=== PATIENT | female | born 1935 | race Caucasian/White ===

== ENCOUNTER 2022-12-03 14:29 | Inpatient (IN) | payer MEDICARE ==
[2022-12-03] VITALS (301 sets, daily range): BP systolic 132; BP diastolic 84; PULSE 96; TEMP 98.3; O2SAT 80–100
[~2022-12-03] VITALS: Ht 160 cm; Wt 75.6 kg
[~2022-12-03 14:29] MED LIST: ASPI325T6 PO; LORTAB 5/500 501 TAB PO; NIACIN500 M3 PO; NORVASC 5MG5 MG/TAB PO; OMEGA-3 1000 MG1 CAP PO; ONE DAILY ESSE0.5 M1 PO; PRINZIDE 12.5 M1 TA1 PO; TOPROL XL 25MG25 MG PO
[2022-12-03 15:18] LABS: BASO # 0.1 K/mm3 (0.0-0.2); BASO % 0.5 % (0.0-2.0); GRAN # 9.2 K/mm3 (1.4-6.5); GRAN % 83.2 % (42.2-75.2); HEMOGLOBIN 10.6 g/dl (12.5-16.0); LYMPH # 0.5 K/mm3 (1.2-3.4); LYMPH % 4.2 % (20.0-51.0); MEAN CELL VOLUME 89 fl (80.0-100.0); MEAN CORPUSCULAR HEMOGLOBIN 28 pg (27-31); MEAN CORPUSCULAR HGB CONC 32 g/dl (33.0-37.0); MEAN PLATELET VOLUME 10.9 fl (7.4-10.4); MONO # 1.3 K/mm3 (0.1-0.6); MONO % 11.5 % (1.7-9.3); PLATELET COUNT 274 K/mm3 (130-400); RED BLOOD COUNT 3.77 M/mm3 (4.10-5.30)
[2022-12-03 15:20] LABS: HEMATOCRIT 33.7 % (37.0-47.0)
[2022-12-03 15:30] LABS: ALBUMIN 3.2 gm/dL (3.4-4.8); BILIRUBIN,TOTAL 0.4 mg/dL (0.2-1.2); CREATININE, serum 1.22 mg/dL (0.57-1.11); POTASSIUM 4.2 mmol/L (3.5-4.5); TOTAL PROTEIN 7.2 gm/dL (6.2-8.1)
[2022-12-03 15:37] LABS: TROPONIN-I 0.063 ng/mL (0.00-0.033)
[2022-12-03 18:37] LABS: BILIRUBIN,DIRECT 0.2 mg/dL (0.0-0.5)
[2022-12-03 18:47] LABS: INR 1.6 (0.8-3.0); PARTIAL THROMBOPLASTIN TIME 34.8 SECONDS (26.0-37.0); PROTHROMBIN TIME 18.1 SECONDS (9.7-12.8)
[2022-12-03 18:50] LABS: C-REACTIVE PROTEIN 2.63 mg/dL (0.00-0.50)
[2022-12-03] MEDS ORDERED: HCTZ12.5TAB PO (19:13)
[2022-12-03] MEDS ORDERED: PRINIVIL10 MG PO (19:14)
[2022-12-03] MEDS ORDERED: ZYLOPRIM 100MG100 MG PO (19:14)
[2022-12-03] MEDS ORDERED: ASPIRIN 81M81 MG/TA2 PO (19:15)
[2022-12-03] MEDS ORDERED: NATURAL ODORLE400 MG PO (19:15)
[2022-12-03] MEDS ORDERED: ELIQUIS 2.5 PO (19:16)
--- NOTE | 2022-12-03 19:30 | NUR ---
Patient's daughter arrived onto the unit. Daughter educated per hospital protocol, she needs to be in PPE due to patient being COVID and Flu positive. Daughter educated on the visitor policy. 1945- Pt assessment completed at this time. Pt placed on bedpan after she mentioned using the restroom. Pt states she is aware of when she needs to go to the restroom although daughter mentioned that the pt is incontinent at home. Pts vital signs are stable, pt rated pain 0/10, and pt is alert and oriented. Pt is able to follow commands and answer questions appropriately. RN assisted pt in repositioning in bed, call light is in reach.
--- NOTE | 2022-12-03 21:56 | NUR ---
Pt's Remdesivir not given at scheduled time due to unavailability at this time. Will be administerd 12/04/22 when pharmacy is available.
[2022-12-04] VITALS (951 sets, daily range): BP systolic 102–121; BP diastolic 66–83; PULSE 73–96; TEMP 98–99.8; O2SAT 43–100
--- NOTE | 2022-12-04 01:44 | NUR ---
PER HEPARIN DRIP PROTOCOL, HEPARIN IS PLACED ON HOLD FOR 2 HOURS.
[2022-12-04 03:57] LABS: PARTIAL THROMBOPLASTIN TIME 63.2 SECONDS (26.0-37.0)
--- NOTE | 2022-12-04 05:17 | NUR ---
Pt voided only 150cc of urine, plus a very small amount of urine unmeasured on the chux. RN bladder scanned pt to determine if pt is retaining urine. Pt bladder scanner read a max of 128cc.
[2022-12-04 06:02] LABS: BASO % 0.4 % (0.0-2.0); GRAN # 6.6 K/mm3 (1.4-6.5); GRAN % 69.6 % (42.2-75.2); HEMOGLOBIN 10.3 g/dl (12.5-16.0); LYMPH # 1.4 K/mm3 (1.2-3.4); LYMPH % 14.5 % (20.0-51.0); MEAN CELL VOLUME 90 fl (80.0-100.0); MEAN CORPUSCULAR HEMOGLOBIN 29 pg (27-31); MEAN CORPUSCULAR HGB CONC 32 g/dl (33.0-37.0); MEAN PLATELET VOLUME 10.3 fl (7.4-10.4); MONO # 1.4 K/mm3 (0.1-0.6); MONO % 15.1 % (1.7-9.3); PLATELET COUNT 242 K/mm3 (130-400); RED BLOOD COUNT 3.57 M/mm3 (4.10-5.30); REDCELL DISTRIBUTION WIDTH-CV 16.1 % (11.5-14.5)
[2022-12-04 06:13] LABS: PARTIAL THROMBOPLASTIN TIME 38.2 SECONDS (26.0-37.0)
[2022-12-04 06:24] LABS: ALBUMIN 2.9 gm/dL (3.4-4.8); BILIRUBIN,TOTAL 0.5 mg/dL (0.2-1.2); CALCIUM 9.4 mg/dL (8.4-10.2); CREATININE, serum 1.06 mg/dL (0.57-1.11); MAGNESIUM 1.7 mg/dL (1.6-2.6); TOTAL PROTEIN 6.5 gm/dL (6.2-8.1)
--- NOTE | 2022-12-04 09:34 | NUR ---
BEDSIDE REPORT RECEIVED FROM SMOOTH FARMER. PT RESTING IN BED, VSS, O2 SAT 93-95% ON ROOM AIR. AMIO DRIP INFUSING TO [facility] TRIPLE LUMEN ORDERED. PT IS ALERT AND ORIENTED, CALL LIGHT IN REACH.
--- NOTE | 2022-12-04 13:48 | NUR ---
Attempt made to contact both the patient and patients daughter Shira to complete intake. Unsuccessful, message left.
--- NOTE | 2022-12-04 15:05 | NUR ---
PAWEL contacted the patients daughter Shira ([phone]) to complete intake. Per Shira,the patient has been living with her since the 07 of October. Shira states that she has to assist the patient with her ADL's but the patient has been able to ambulate short distances with the aid of a walker. She has no home oxygen needs. Patient has recently established care with for PCP care and gets her medications through [facility]. Shira reports that she has asked her brother to look for the patients DPOA-HC paperwork at her home in [place]. She believes that it is set up where she is the patients medical decision maker and her brother is her financial decision maker. Shira verbalizes that she has been speaking with Ankush at [facility] to get the patient into assisted living and would like a referral sent there for skilled care. Her second preference would be [facility]. Phone call made to Ankush at [facility] to inform her of the referral and she confirms that she has been working with the family but would not be able to bring the patient into their facility until 10 day post positive covid swab. Phone call made to Kwabena at [facility] and referral sent to him for review.
--- NOTE | 2022-12-04 20:00 | NUR ---
Pt assessment completed. EMAR states pt is ordered to receive Eliquis and Amiodorone PO at 2100, per day shift RN, pharmacy was consulted about time of administration. Pharmacy told day shift RN to administer medications at 0000 on 12/04/22 to put pt on a correct scheudle for the following day.
[2022-12-04] MEDS ORDERED: VITAMIN C500 MG PO (23:37)
[2022-12-05 05:02] VITALS: BP 112/73; PULSE 99; TEMP 98
[2022-12-05 05:30] LABS: BASO % 0.4 % (0.0-2.0); GRAN # 6.2 K/mm3 (1.4-6.5); GRAN % 74.2 % (42.2-75.2); LYMPH % 12.3 % (20.0-51.0); MEAN CELL VOLUME 90 fl (80.0-100.0); MEAN CORPUSCULAR HGB CONC 33 g/dl (33.0-37.0); MEAN PLATELET VOLUME 10.8 fl (7.4-10.4); MONO # 1.1 K/mm3 (0.1-0.6); MONO % 12.7 % (1.7-9.3); PLATELET COUNT 231 K/mm3 (130-400); RED BLOOD COUNT 3.33 M/mm3 (4.10-5.30); REDCELL DISTRIBUTION WIDTH-CV 16.1 % (11.5-14.5)
[2022-12-05 05:31] LABS: HEMATOCRIT 30.1 % (37.0-47.0); HEMOGLOBIN 9.8 g/dl (12.5-16.0); MEAN CORPUSCULAR HEMOGLOBIN 29 pg (27-31)
[2022-12-05 05:33] LABS: ALBUMIN 2.6 gm/dL (3.4-4.8); BILIRUBIN,TOTAL 0.4 mg/dL (0.2-1.2); CALCIUM 8.7 mg/dL (8.4-10.2); CREATININE, serum 0.92 mg/dL (0.57-1.11); MAGNESIUM 1.8 mg/dL (1.6-2.6); POTASSIUM 3.5 mmol/L (3.5-4.5); TOTAL PROTEIN 5.9 gm/dL (6.2-8.1)
--- NOTE | 2022-12-05 07:00 | NUR ---
PT RESTING IN BED. PT IS ON RA. PT IN ISOLATION FOR COVID. PT HAS BEDALARM ACITVE. PT HAS PUREWICK IN PLACE. PT INSTRUCTED TO CALL WITH ALL NEEDS AND HAS CALL LIGHT WITHIN REACH. 08Irlanda-LETA MATIAS WITH ASKED REGARDING POSSIBLE MASOUD/CARDIOVERSION TODAY.
[2022-12-05 07:43] VITALS: BP 94/56; PULSE 82; TEMP 97.9
--- NOTE | 2022-12-05 08:37 | NUR ---
MISA NATION NOTIFIED OF PTS ORDERS BEING DCD WHEN TX OUT OF ICU. STATES SHE WILL NOTIFIY DR RIVERA
[2022-12-05 09:58] LABS: CALCIUM 8.6 mg/dL (8.4-10.2); CREATININE, serum 0.86 mg/dL (0.57-1.11); POTASSIUM 3.3 mmol/L (3.5-4.5)
--- NOTE | 2022-12-05 11:37 | NUR ---
Scissors Sharpener faxed clinical updates to [facility].
[2022-12-05 11:54] VITALS: BP 110/40; PULSE 75; TEMP 97.7
[2022-12-05 15:21] VITALS: BP 97/58; PULSE 72; TEMP 97.7
[2022-12-05 20:52] VITALS: BP 124/80; PULSE 72; TEMP 97.7
[2022-12-06] VITALS (7 sets, daily range): BP systolic 108–147; BP diastolic 53–93; PULSE 46–88; TEMP 97.6–98.7
[2022-12-06 06:55] LABS: CALCIUM 8.7 mg/dL (8.4-10.2); CREATININE, serum 0.85 mg/dL (0.57-1.11); POTASSIUM 3.9 mmol/L (3.5-4.5)
[2022-12-06 07:12] LABS: BASO % 0.5 % (0.0-2.0); EOS # 0.1 K/mm3 (0.0-0.7); EOS % 1.1 % (0.0-4.0); GRAN # 3.6 K/mm3 (1.4-6.5); GRAN % 57.5 % (42.2-75.2); HEMOGLOBIN 10.6 g/dl (12.5-16.0); LYMPH # 1.4 K/mm3 (1.2-3.4); LYMPH % 21.8 % (20.0-51.0); MEAN CELL VOLUME 87 fl (80.0-100.0); MEAN CORPUSCULAR HEMOGLOBIN 28 pg (27-31); MEAN CORPUSCULAR HGB CONC 33 g/dl (33.0-37.0); MEAN PLATELET VOLUME 10.8 fl (7.4-10.4); MONO # 1.2 K/mm3 (0.1-0.6); MONO % 18.8 % (1.7-9.3); PLATELET COUNT 234 K/mm3 (130-400); RED BLOOD COUNT 3.73 M/mm3 (4.10-5.30); REDCELL DISTRIBUTION WIDTH-CV 15.8 % (11.5-14.5)
[2022-12-06 07:14] LABS: HEMATOCRIT 32.3 % (37.0-47.0)
--- NOTE | 2022-12-06 16:49 | NUR ---
RECIEVED CALLED FROM CRITICAL CARE REGARDING PATIENT HR. JUMPING FROM 80 TO [address]. [address] WOODS. AWARE. STATED TO JUST WATCH IT. AFIB RATE CONTROLLED. WILL CONTINUE TO MONITOR. PATIENT IS ASYMPTOMATIC AND COMFORTABLE LYING IN BED
--- NOTE | 2022-12-06 18:24 | NUR ---
PATIENT IS IN BED. 1X PERSON HEAVY ASSIST WITH WALKER TO THE BEDSIDE. ALERT AND ORIENTED X4. INCONTINENT OF BOWEL AND BLADDER. PUREWICK IS IN. DOES NOT COMPLAIN OF PAIN.
[2022-12-07] VITALS (7 sets, daily range): BP systolic 109–154; BP diastolic 67–94; PULSE 53–78; TEMP 97.6–98.8
--- NOTE | 2022-12-07 06:19 | NUR ---
pt on RA, stayed in bed this shift, purewick in place for incontinence, no c/o pain or discomfort.
--- NOTE | 2022-12-07 13:48 | NUR ---
PAWEL contacted [facility] and [facility] to inquire if they can accept or not. Rosalina, at [facility], states that they want to wait to see how she is doing prior to her last few days, before they will give us an answer of if they accept or not. Kwabena, at [facility], states that at this point, he thinks they can. PAWEL faxed updates to both facilities.
[2022-12-08 04:15] VITALS: BP 122/85; PULSE 84; TEMP 97.9
--- NOTE | 2022-12-08 05:15 | NUR ---
ASSESSMENT COMPLETE FOR NURSERY WORKER. PT COMPLAINED OF A STOMACH ACHE. HOSPITALIST CALLED. MAALOX ORDERED AND GIVEN. PT ALSO COMPLAINED OF BACK AND SHOULDER PAIN. PT GIVEN TYLENOL FOR PAIN. AROUND 0600HRS PT REQUESTED A TOPICAL FOR PAIN. INFORMATION/REQUEST PASSED ON TO DAYSHIFT RN. CALL LIGHT WITHIN REACH.
[2022-12-08 07:18] VITALS: BP 120/85; PULSE 66; TEMP 97.7
--- NOTE | 2022-12-08 08:00 | NUR ---
Patient laying in bed, A&Ox3. VSS. IV CDI. Reports discomfort in neck, shoulds and back from laying in bed. Nurse assisted with repositioning for comfort. Droplet/contact precautions in place. Purewick in place. Call light within reach. Bed alarm on
[2022-12-08 11:18] VITALS: BP 134/77; PULSE 60; TEMP 97.5
--- NOTE | 2022-12-08 14:28 | NUR ---
PAWEL faxed updates to [facility].
[2022-12-08 15:09] VITALS: BP 117/68; PULSE 71; TEMP 98.4
[2022-12-08 20:43] VITALS: BP 123/78; PULSE 83; TEMP 98.1
[2022-12-08 23:15] VITALS: BP 134/83; PULSE 56; TEMP 98.1
--- NOTE | 2022-12-09 02:40 | NUR ---
CALLED FOR ALBUTEROL INHALER PT SPO2 93% ON RA RR 24-28. WHEEZES NOT IMPROVED WITH INHALER.
[2022-12-09 03:06] VITALS: BP 105/79; PULSE 78; TEMP 97.7
[2022-12-09 07:05] LABS: HEMOGLOBIN 10.5 g/dl (12.5-16.0); MEAN CELL VOLUME 86 fl (80.0-100.0); MEAN CORPUSCULAR HEMOGLOBIN 29 pg (27-31); MEAN CORPUSCULAR HGB CONC 33 g/dl (33.0-37.0); MEAN PLATELET VOLUME 10.2 fl (7.4-10.4); PLATELET COUNT 253 K/mm3 (130-400); RED BLOOD COUNT 3.67 M/mm3 (4.10-5.30); REDCELL DISTRIBUTION WIDTH-CV 15.7 % (11.5-14.5)
[2022-12-09 07:11] LABS: CALCIUM 8.7 mg/dL (8.4-10.2); CREATININE, serum 0.79 mg/dL (0.57-1.11); HEMATOCRIT 31.6 % (37.0-47.0); POTASSIUM 4.6 mmol/L (3.5-4.5)
[2022-12-09 07:56] LABS: EOSINOPHIL 1 % (0-4); LYMPHOCYTE 26 % (20.0-51.0); NEUTROPHILS 58 % (42.0-75.2)
[2022-12-09 07:57] LABS: PLATELET ESTIMATE NORMAL (NORMAL)
[2022-12-09 07:58] LABS: ANISOCYTOSIS 1+
[2022-12-09 08:00] VITALS: BP 112/28; PULSE 79; TEMP 98.5
--- NOTE | 2022-12-09 08:00 | NUR ---
Patient sitting up in the recliner, A&Ox3. VSS. IV CDI. Reports pain in RT hip. Nursing staff assisting with transfering the patient back to bed and repositioning for comfort. Pillow placed on right side of the body. Covid precautions in place. Purewick intact. Call light within reach. Bed alarm on
--- NOTE | 2022-12-09 10:54 | NUR ---
Called by [employer] that pt jie down to 19. Went to room to assess Pt. Pt in bed, pale, and stated i feel like I am going to pass out. VS checked, bp 111/44. Hr 30, 91 on RA. Pt placed on oxygen. Ioana phillip RN called and notified. called and notified. Pt laid flat in bed. Asked if ok to give atropine, and order received. EKG done,Kaila REBOLLAR called and notified Pt's daughter. Pt placed on portable monitor with zoll pads. Hr up to 50's after atropine. BP 121/81. O2 100 on 4L oxymask. bedside. BG checked. Misael MATIAS bedside. This RN disucussed with Pt and daughter if pt becomes bradycardic and doesnt respond to medicine if they would want external pacing. Pt and daughter both stated yes. notified. Pt resting. Pts hr 55, bp 118/78, 100 on 4L. Ioana RN updated on above.
[2022-12-09 11:51] LABS: HEMOGLOBIN 10.6 g/dl (12.5-16.0); MEAN CELL VOLUME 89 fl (80.0-100.0); MEAN CORPUSCULAR HEMOGLOBIN 29 pg (27-31); MEAN CORPUSCULAR HGB CONC 32 g/dl (33.0-37.0); MEAN PLATELET VOLUME 10.4 fl (7.4-10.4); PLATELET COUNT 280 K/mm3 (130-400); REDCELL DISTRIBUTION WIDTH-CV 15.9 % (11.5-14.5)
[2022-12-09 11:53] LABS: HEMATOCRIT 32.8 % (37.0-47.0)
[2022-12-09 12:00] VITALS: BP 126/64; PULSE 56; TEMP 97.8
[2022-12-09 12:08] LABS: ALBUMIN 2.5 gm/dL (3.4-4.8); BILIRUBIN,TOTAL 0.7 mg/dL (0.2-1.2); CALCIUM 8.7 mg/dL (8.4-10.2); CREATININE, serum 1.04 mg/dL (0.57-1.11); POTASSIUM 5.2 mmol/L (3.5-4.5); TOTAL PROTEIN 6.2 gm/dL (6.2-8.1)
[2022-12-09 12:14] LABS: TROPONIN-I 0.012 ng/mL (0.00-0.033)
[2022-12-09 12:33] LABS: ANISOCYTOSIS 1+; HYPOCHROMIA 1+; LYMPHOCYTE 15 % (20.0-51.0); NEUTROPHILS 81 % (42.0-75.2); PLATELET ESTIMATE NORMAL (NORMAL)
--- NOTE | 2022-12-09 14:55 | NUR ---
Telemetry notifed this nurse that the patients HR low at 37. Kvng, RN aware. Nurse notified Dr. Navarro and FLORENCIO Douglas. Additional orders placed.
[2022-12-09 14:56] VITALS: BP 103/37; PULSE 48
--- NOTE | 2022-12-09 18:25 | NUR ---
Patient on comfort care, daughter is staying over night with the patient. Charge and boarding house manager aware. Call light within reach. Patient positioned for comfort.
--- NOTE | 2022-12-10 05:00 | NUR ---
Patient care, medication administration and nursing documentation occurred during a Daylight Savings Time Change. ASSESSMENT COMPLETE FOR PERFORMANCE CONSULTANT. PT DENIED PAIN THROUGHT OUT SHIFT. PT ASKED FOR WATER AND MAALOX. BOTH GIVEN. WARM BANKETS AND COMFORT PROVIDED WELL. FALL PERCAUTIONS IN PLACE. BED ALARM ON. CALL LIGHT WITHIN REACH.
--- NOTE | 2022-12-10 09:15 | NUR ---
Pt laying in bed. Morning medications administered per eMAR. Shift assessment completed. Telemetry on; sinus jie. Pt on 4L per oxymask. Triple lumen L subclavian site intact; scant drainage noted. INT in L forearm patent, no edema or redness. Purewick remains in place with clear, carlos a output. Pt repositioned for comfort. Call light within reach. Bed alarm on.
--- NOTE | 2022-12-10 10:55 | NUR ---
informed SW that pt is going with hospice now.
--- NOTE | 2022-12-10 11:22 | NUR ---
Toll Line Inspector rounds: RN told Toll Line Inspector that Patient is on comfort care. Toll Line Inspector visited to provide prayer and supportive listening to Daughter Shira Wheatley. Toll Line Inspector encouraged Shira Wheatley to practice self-care as she cares for her Mother. Toll Line Inspector read Lenten devotional, Psalm 121, and prayed for Patient and her entire family per the prayer concerns expressed by Shira Wheatley. Toll Line Inspector provided a New Testament with the Psalms.
--- NOTE | 2022-12-10 16:15 | NUR ---
Hospitalist, notified this nurse to remove pt off of O2.
--- NOTE | 2022-12-10 16:45 | NUR ---
PRN morphine administered. Pt removed off of O2. No c/o SOB or respiratory distress. Pt O2 sat <90% on RA. Pt now on RA per hospitalist orders.
--- NOTE | 2022-12-10 18:32 | NUR ---
This nurse assisted DAHLIA Alicia with repositioning pt in bed. Call light within reach.
--- NOTE | 2022-12-11 05:05 | NUR ---
ASSESSMENT COMPLETE FOR SECTION LABORER. PT SLEPT PRETTY MUCH THE WHOLE SHIFT. PT CONTINUES TO DENY PAIN AND REFUSE PAIN MEDS. PT'S ONLY REQUEST WAS A SIP OF WATER. PT CHECKED ON FREQUENTLY. COMFORT PROVIDED. FALL PRECAUTIONS IN PLACE. BED ALARM ON. CALL LIGHT WITHIN REACH.
--- NOTE | 2022-12-11 08:00 | NUR ---
Patient laying in bed, intermittently yelling out for water. Nursing staff assisting with providing water. Alert, but confused and drowsy. Covid precautions in place. Patient repositioned for comfort. Pain medications given when requested. Purewick in place. Call light within reach. Bed alarm on. Comfort care orders in place.
--- NOTE | 2022-12-11 10:07 | NUR ---
The patient's family transitioned the patient to comfort care over the weekend. SW contacted the patient's daughter, Shira, to discuss the options for hospice care. Shira states that she is unsure if she made the right decision going comfort care and would like to talk to the doctor again before making a final decision on hospice vs continued treatment. PAWEL notified the hospitalist, Dr. Lewis, and asked that he call her. Awaiting final decision from family.
--- NOTE | 2022-12-11 13:17 | NUR ---
The hospitalist ordered a palliative care consult. SMOOTH Dossrefrigerator crater, met with the patient's daughter, Shira. Selam notified SW that the patient's daughter would like to take today, to see how the patient does with therapy and eating. They will make a final decision tomorrow on hospice vs SNF. SW to fax updates to [facility] and [facility].
--- NOTE | 2022-12-11 13:26 | NUR ---
Met with Dr. Lewis, daughter- Shira, pt and myself concerning Hospice. Daughter came out of the room and stated, "My mother said she did not want Hospice." Pt is currently DNR. Pt was also falling asleep during PT sessions. Pt was placed in Comfort Care but it was discussed today with the Shira and pt. When pt was asked if she wanted Hospice she stated, "No." I asked her what her goals were and she stated ,"I want to get better and walk again." It was discussed with pt per Dr. Lewis her need of a pacemaker and other therapies from Cardiology. Pt stated she wanted a pacmaker. It was decided after discussion that PT will work with pt today and pt will make an effort to eat and then a decision will be made tomorrow concerning discharge planning.
--- NOTE | 2022-12-11 14:55 | NUR ---
Commissary Production Supervisor faxed clinical updates to Kwabena at [facility] and Rosalina at [facility].
[2022-12-11 18:48] VITALS: BP 141/70; PULSE 47; TEMP 97.6
[2022-12-11 22:29] VITALS: BP 121/66; PULSE 87; TEMP 98.4
[2022-12-12 02:46] VITALS: BP 154/82; PULSE 45; TEMP 97.7
[2022-12-12 07:27] VITALS: BP 170/61; PULSE 48; TEMP 97.9
--- NOTE | 2022-12-12 08:00 | NUR ---
Patient laying in bed, easily awakened with verbal command. A&Ox4. VSS. HR bradycardic, Doctors aware. IV CDI. Repositioned as needed. Purewick intact. No longer on covid precautions. Call light within reach
--- NOTE | 2022-12-12 09:24 | NUR ---
Telemetry notified this nurse of patients HR in the 35-40 range. FLORENCIO Krishna with cardiology on the floor and notified. Will continue to monitor. Call light within reach
[2022-12-12 11:21] VITALS: BP 138/50; PULSE 40; TEMP 97.9
[2022-12-12] MEDS ORDERED: LASIX 20MG TABL20 MG PO (15:18)
[2022-12-12 15:42] VITALS: BP 132/53; PULSE 45; TEMP 98.2
--- NOTE | 2022-12-12 15:45 | NUR ---
TLC removed from LF subclavian. Tip intact. Sterile process, gauze and tegaderm applied. 15 minutes pressure held. Patient tolerated well. Call light within reach. Bed alarm on
--- NOTE | 2022-12-12 16:11 | NUR ---
PAWEL contacted the patient's daughter, Shira, to follow up on decision for hospice vs SNF. Shira states that they would like to pursue SNF at this time and are not ready for hospice. PAWEL reviewed how [facility] had accepted and the hospitalist is ready to discharge the patient today. Shira verbalized understanding and is agreeable with the patient going to [facility]. PAWEL read the IM form outloud to Shira over the phone. Shira verbalized understanding and agreement to discharge today. She gave PAWEL approval to sign the form on her behalf. PAWEL then received a phone call from Rosalina at [facility]. Rosalina inquired if the patient is ready to discharge or if other placement had been secured. PAWEL updated Rosalina on the above plan. Transportation was arranged at 1630. PAWEL contacted the patient's daughter, Shira, to update. Shira sounded upset and states that [facility] reached out to her and they told her they could re-evaluate the patient. She states that [facility] is the patient's first preference and the patient does not want to go to a [facility]. PAWEL contacted Rosalina at [facility]. Rosalina states that they cannot take the patient today and are not sure if they can take the patient tomorrow or not. They would need to see updates from today. PAWEL emailed updates to Rosalina at [facility]. Rosalina states that they are able to accept the patient tomorrow, 12/13. PAWEL updated the patient's RN and the hospitalist. PAWEL attempted to contact and update the patient's daughter, Shira. PAWEL left her a voicemail.
[2022-12-12 19:24] VITALS: BP 145/93; PULSE 45; TEMP 97.9
[2022-12-12 23:12] VITALS: BP 146/66; PULSE 47; TEMP 98.1
[2022-12-13 03:02] VITALS: BP 142/50; PULSE 41; TEMP 97.5
[2022-12-13 07:22] VITALS: BP 144/52; PULSE 43; TEMP 98
--- NOTE | 2022-12-13 09:39 | NUR ---
The patient is to discharge today, 12/13, to [facility] for a skilled stay. Transportation was scheduled around 1200, via [employer]. SW informed the patient's daughter (Shira) and the RN of the time. No additional needs at this time.
--- NOTE | 2022-12-13 11:30 | NUR ---
PATIENTS IV AND TELE REMOVED FOR DISCHARGE.
[2022-12-13 11:35] VITALS: BP 126/77; PULSE 43; TEMP 98.1
--- NOTE | 2022-12-13 11:44 | NUR ---
REPORT CALLED TO [facility] NURSE DON. CALL BACK NUMBER GIVEN.
--- NOTE | 2022-12-13 11:54 | NUR ---
PATIENT WAS TRANSFERED INTO WHEEL CHAIR BY THIS RN AND 2 PC. PATIENT WAS PICKED UP AT BEDSIDE BY [employer] EMPLOYEE. DISCHARGE/TRANSFER PCKET GIVEN TO [employer] [facility] EMPL[employer]EE. PATIENT LEFT IN STABLE CONDITOIN, VITALS STABLE.
== END 2022-12-13 12:04 | DRG 871 ==
LOC: COL.ER 14:29 → ICU 16:34 → MEDICAL 16:34 → ICU 12-04 15:07 → MEDICAL 12-04 22:26
PROVIDERS: Emergency Medicine; Student in an Organized Health Care Education/Training Program; ADMIT Hospitalist
PROC: 02HV33Z Insertion of Infusion Device into Superior Vena Cava, Percutaneous Approach (ICD-10-PCS; principal; 2022-12-03)
PROC: XW043E5 Introduction of Remdesivir Anti-infective into Central Vein, Percutaneous Approach, New Technology Group 5 (ICD-10-PCS; 2022-12-04)
DX: A41.89 Other specified sepsis (principal); I21.A1 Myocardial infarction type 2; U07.1 COVID-19; I50.41 Acute combined systolic (congestive) and diastolic (congestive) heart failure; N17.9 Acute kidney failure, unspecified; I48.20 Chronic atrial fibrillation, unspecified; Z66 Do not resuscitate; E87.1 Hypo-osmolality and hyponatremia; Z51.5 Encounter for palliative care; J10.1 Influenza due to other identified influenza virus with other respiratory manifestations; M10.9 Gout, unspecified; I25.10 Atherosclerotic heart disease of native coronary artery without angina pectoris; I11.0 Hypertensive heart disease with heart failure; I95.9 Hypotension, unspecified; I08.1 Rheumatic disorders of both mitral and tricuspid valves; E87.5 Hyperkalemia; R00.1 Bradycardia, unspecified; T46.2X5A Adverse effect of other antidysrhythmic drugs, initial encounter; Z88.1 Allergy status to other antibiotic agents; Z88.0 Allergy status to penicillin; Z88.7 Allergy status to serum and vaccine; Z88.8 Allergy status to other drugs, medicaments and biological substances; Z79.82 Long term (current) use of aspirin; Z79.01 Long term (current) use of anticoagulants; Z95.4 Presence of other heart-valve replacement; Z90.49 Acquired absence of other specified parts of digestive tract; Z90.710 Acquired absence of both cervix and uterus; Z95.1 Presence of aortocoronary bypass graft
CPT/HCPCS: A9270; J0282; J0461; J1644; J2270; J2405; J3475; J7060

== ENCOUNTER → 2022-12-29 | Outpatient (REF) | payer MEDICARE ==
[~2022-12-29] MED LIST changes: +ASPIRIN 81M81 MG/TA2 PO; +ELIQUIS 2.5 PO; +HCTZ12.5TAB PO; +LASIX 20MG TABL20 MG PO; +NATURAL ODORLE400 MG PO; +PRINIVIL10 MG PO; +VITAMIN C500 MG PO; +ZYLOPRIM 100MG100 MG PO
[2022-12-29 15:18] LABS: CALCIUM 9.1 mg/dL (8.4-10.2); CREATININE, serum 0.92 mg/dL (0.57-1.11)
[2022-12-29 15:20] LABS: BASO % 0.2 % (0.0-2.0); EOS # 1.9 K/mm3 (0.0-0.7); EOS % 15.5 % (0.0-4.0); GRAN % 56.6 % (42.2-75.2); HEMATOCRIT 34.5 % (37.0-47.0); HEMOGLOBIN 10.6 g/dl (12.5-16.0); LYMPH # 2.2 K/mm3 (1.2-3.4); LYMPH % 17.7 % (20.0-51.0); MEAN CELL VOLUME 92 fl (80.0-100.0); MEAN CORPUSCULAR HEMOGLOBIN 28 pg (27-31); MEAN CORPUSCULAR HGB CONC 31 g/dl (33.0-37.0); MEAN PLATELET VOLUME 10.2 fl (7.4-10.4); MONO # 1.2 K/mm3 (0.1-0.6); MONO % 9.4 % (1.7-9.3); PLATELET COUNT 409 K/mm3 (130-400); RED BLOOD COUNT 3.77 M/mm3 (4.10-5.30); REDCELL DISTRIBUTION WIDTH-CV 17.1 % (11.5-14.5)
== END ==
LOC: ZCOL.LAB 14:52
PROVIDERS: Internal Medicine Interventional Cardiology
DX: R00.1 Bradycardia, unspecified (principal)